=== PATIENT | female | born 1945 | race Caucasian/White ===

== ENCOUNTER → 2017-04-03 | Outpatient (CLI) | payer MEDICARE ==
--- NOTE | 2017-04-03 13:49 | BD ---
EXAMINATION TYPE: MG DEXA axial skeleton. DATE OF EXAM: 04/03/2017 COMPARISON: NONE CLINICAL HISTORY: Postmenopausal female. Height: 62.7 IN Weight: 140 LBS FRAX RISK QUESTIONS: Alcohol (3 or more units per day): NO Family History (Parent hip fracture): NO Glucocorticoids (More than 3mos): NO (Ex: prednisone, prednisolone, methylprednisolone, dexamethasone, and hydrocortisone). History of Fracture in Adulthood: NO Secondary Osteoporosis: 1. Type 1 Diabetes: NO 2. Hyperthyroidism: NO 3. Menopause before 45: AGE 48 4. Malnutrition: NO 5. Chronic liver disease: NO Rheumatoid Arthritis: NO Current Tobacco Use: NO RISK FACTORS HISTORY OF: Family History of Osteoporosis: YES MOTHER Active: YES Postmenopausal woman: AGE 48 Take estrogen and/or progesterone medications: NOT NOW How long: AGE 50 - 50 MEDICATIONS: Additional Medications: CALCIUM, VIT D, CENTRUM SILVER, BIOTIN, B12, RED YEAST RICE, PATI GLUCOSAMINE EXAM MEASUREMENTS: Bone mineral densitometry was performed using the [employer] System. Bone mineral density as measured about the Lumbar spine is: ----- L1-L4(G/cm2): 0.945 T Score Values are as follows: ----- L2: -2.6 ----- L3: -2.0 ----- L4: -0.8 ----- L1-L4: -2.0 Bone mineral density has: Increased 8.3% since study of: 12/24/2008 Bone mineral density about the R hip (g/cm2): 0.828 Bone mineral density about the L hip (g/cm2): 0.748 T Score values are as follows: -----R Neck: -1.5 -----L Neck: -2.1 -----R Total: -1.0 -----L Total: -1.2 Bone mineral density has: Decreased -4.7% since study of: 12/24/2008 IMPRESSION: OSTEOPOROSIS. 10 YEAR FRACTURE RISK: MAJOR OSTEOPOROTIC FRACTURE RISK: 13.4% HIP FRACTURE RISK: 3.3% NOTE: T-SCORE=SD OF THE YOUNG ADULT MEAN.
--- NOTE | 2017-04-04 08:54 | MM ---
Reason for exam: screening (asymptomatic). Last mammogram was performed 1 year ago. History: Patient is postmenopausal. Family history of breast cancer in sister at age 50 and breast cancer in sister at age 55. Benign stereotactic core biopsy of the right breast, September 08, 2003. Took estrogen for 10 years beginning at age 48. Physical Findings: A clinical breast exam by your physician is recommended on an annual basis and results should be correlated with mammographic findings. MG 3D Screening Mammo W/Cad Bilateral CC and MLO view(s) were taken. Prior study comparison: March 29, 2016, bilateral MG 3d screening mammo w/cad. March 25, 2015, bilateral MG screening mammo w CAD. The breast tissue is heterogeneously dense. This may lower the sensitivity of mammography. Stable benign calcifications. There is chronic nodularity in the left breast, stable. No significant changes when compared with prior studies. ASSESSMENT: Benign, BI-RAD 2 RECOMMENDATION: Routine screening mammogram of both breasts in 1 year.
== END | disposition home or self-care (01) ==
LOC: RADBDWWP 10:30
PROVIDERS: ATTEND Obstetrics & Gynecology
DX: Z12.31 Encounter for screening mammogram for malignant neoplasm of breast (principal); Z13.820 Encounter for screening for osteoporosis; M81.0 Age-related osteoporosis without current pathological fracture
CPT/HCPCS: 77080; 77063; G0202

== ENCOUNTER 2019-01-29 11:48 | Emergency (ER) | payer MEDICARE ==
[2019-01-29] MEDS ORDERED: METOCLOPRAMIDE 5 MG/ML 2 ML VIAL IVP STA (12:20)
[2019-01-29] MEDS ORDERED: methylPREDNISolone SOD SUCCI 250 MG in SODIUM CHLORIDE 0.9% 100 ML IVPB STA (12:20)
[2019-01-29] MEDS ORDERED: diphenhydrAMINE 50 MG/ML 1 ML VIAL IVP STA (12:20)
[2019-01-29] MEDS ORDERED: SODIUM CHLORIDE 0.9% 1,000 ML IV STA (12:20)
[2019-01-29] MEDS ORDERED: MORPHINE SULFATE 4 MG/ML SYRINGE IVP STA (12:20)
[2019-01-29] MEDS ORDERED: KETOROLAC 30 MG/ML 1 ML VIAL IVP STA (12:20)
--- NOTE | 2019-01-29 13:09 | ED ---
Headache HPI - General Chief Complaint: Headache Stated Complaint: headache Time Seen by Provider: 01/29/19 12:07 Source: RN notes reviewed, old records reviewed Mode of arrival: ambulatory Limitations: no limitations - History of Present Illness Initial Comments: This is a 73-year-old female the ER for evaluation. Patient coming of post shingles pain. She has pain medication at home which she states this helped but not significantly improving. She did finish a complete dose of antibiotics and states pain is just not gotten any better. Denies any other injuries or trauma. No other pain. No neurological complaints. MD Complaint: headache, other (Neck pain skin pain shoulder pain) -: week(s) Onset Description: gradual Location: left Severity: moderate Severity scale (1-10): 4 Quality: aching, throbbing Consistency: constant Improves With: medication Worsens With: none Associated Symptoms: weakness (Patient does believe she is dehydrated) Treatments Prior to Arrival: prescription analgesic - Related Data Home Medications Medication Instructions Recorded Confirmed Cholecalciferol [Vitamin D3] 5,000 unit PO DAILY 04/01/15 01/29/19 Vitamin B Complex 1,000 cap PO DAILY 04/01/15 01/29/19 Glucosamine-Chondr 500-400Mg 1 tab PO DAILY 04/22/16 01/29/19 Multivitamin/Iron/Folic Acid 1 tab PO DAILY 04/22/16 01/29/19 [Centrum Complete Multivit Tab] L.acidoph,Paracasei, B.lactis 1 cap PO DAILY 01/29/19 01/29/19 [Probiotic] Vitamin C/Biotin [Hair, Skin and 1 tab PO DAILY 01/29/19 01/29/19 Nails] traMADol HCL [Ultram] 50 mg PO Q6HR PRN 01/29/19 01/29/19 Allergies Allergy/AdvReac Type Severity Reaction Status Date / Time Iodinated Contrast- Oral and Allergy Nausea & Verified 01/29/19 12:08 IV Dye Vomiting [Iodinated Contrast Media - IV Dye] steroids Allergy Rash/Hives Uncoded 01/29/19 11:52 Review of Systems ROS Statement: Those systems with pertinent positive or pertinent negative responses have been documented in the HPI. ROS Other: All systems not noted in ROS Statement are negative. Past Medical History Past Medical History: No Reported History History of Any Multi-Drug Resistant Organisms: None Reported Past Surgical History: Tubal Ligation Past Anesthesia/Blood Transfusion Reactions: No Reported Reaction Past Psychological History: No Psychological Hx Reported Smoking Status: Former smoker Past Alcohol Use History: Occasional Past Drug Use History: None Reported - Past Family History Sister(s) Family Medical History: Cancer General Exam - General Exam Comments Initial Comments: Patient does have shingles like rash around left neck left shoulder left anterior chest, resolved Limitations: no limitations General appearance: alert, in no apparent distress Head exam: Present: atraumatic, normocephalic, normal inspection Eye exam: Present: normal appearance, PERRL, EOMI. Absent: scleral icterus, conjunctival injection, periorbital swelling ENT exam: Present: normal exam, mucous membranes moist Neck exam: Present: normal inspection. Absent: tenderness, meningismus, lymphadenopathy Respiratory exam: Present: normal lung sounds bilaterally. Absent: respiratory distress, wheezes, rales, rhonchi, stridor Cardiovascular Exam: Present: regular rate, normal rhythm, normal heart sounds. Absent: systolic murmur, diastolic murmur, rubs, gallop, clicks GI/Abdominal exam: Present: soft, normal bowel sounds. Absent: distended, tenderness, guarding, rebound, rigid Extremities exam: Present: normal inspection, full ROM, normal capillary refill. Absent: tenderness, pedal edema, joint swelling, calf tenderness Back exam: Present: normal inspection Neurological exam: Present: alert, oriented X3, CN II-XII intact Psychiatric exam: Present: normal affect, normal mood Skin exam: Present: warm, dry, intact, normal color. Absent: rash Course Vital Signs 01/29/19 01/29/19 01/29/19 11:50 13:52 14:35 Temperature 98.2 F 98.1 F Pulse Rate 91 87 76 Respiratory 20 18 18 Rate Blood Pressure 156/84 137/79 139/79 O2 Sat by Pulse 99 98 97 Oximetry - Reevaluation(s) Reevaluation #1: Medical record reviewed Headache resolved here in the ER Medical Decision Making - Medical Decision Making 73 female the ER for evaluation. Patient presents today for evaluation regards to headache. Headache from shingles. Headache is improved here in the ER patient can be discharged home - Lab Data Result diagrams: 01/29/19 12:50 01/29/19 12:50 Lab Results 05/21/19 05/21/19 Range/Units 12:50 12:50 WBC 5.8 (3.8-10.6) k/uL RBC 4.50 (3.80-5.40) m/uL Hgb 14.0 (11.4-16.0) gm/dL Hct 42.7 (34.0-46.0) % MCV 95.1 (80.0-100.0) fL MCH 31.1 (25.0-35.0) pg MCHC 32.7 (31.0-37.0) g/dL RDW 14.2 (11.5-15.5) % Plt Count 298 (150-450) k/uL Neutrophils % 65 % Lymphocytes % 25 % Monocytes % 8 % Eosinophils % 1 % Basophils % 0 % Neutrophils # 3.7 (1.3-7.7) k/uL Lymphocytes # 1.5 (1.0-4.8) k/uL Monocytes # 0.5 (0-1.0) k/uL Eosinophils # 0.1 (0-0.7) k/uL Basophils # 0.0 (0-0.2) k/uL Sodium 138 (137-145) mmol/L Potassium 4.1 (3.5-5.1) mmol/L Chloride 103 (98-107) mmol/L Carbon Dioxide 29 (22-30) mmol/L Anion Gap 6 mmol/L BUN 10 (7-17) mg/dL Creatinine 0.62 (0.52-1.04) mg/dL Est GFR (CKD-EPI)AfAm >90 (>60 ml/min/1.73 sqM) Est GFR (CKD-EPI)NonAf 89 (>60 ml/min/1.73 sqM) Glucose 95 (74-99) mg/dL Calcium 10.0 (8.4-10.2) mg/dL Phosphorus 3.3 (2.5-4.5) mg/dL Magnesium 1.9 (1.6-2.3) mg/dL Total Bilirubin 0.8 (0.2-1.3) mg/dL AST 32 (14-36) U/L ALT 17 (9-52) U/L Alkaline Phosphatase 78 (38-126) U/L Total Protein 7.2 (6.3-8.2) g/dL Albumin 4.2 (3.5-5.0) g/dL Disposition Clinical Impression: Headache Disposition: HOME SELF-CARE Condition: Good Instructions (If sedation given, give patient instructions): Acute Headache (ED) Is patient prescribed a controlled substance at d/c from ED?: No Referrals: Pretty Jules MD [Primary Care Provider] - 1-2 days
[2019-01-29 13:54] LABS: Basophils % (A) 0 %; Eosinophils # (A) 0.1 k/uL (0-0.7); Eosinophils % (A) 1 %; HCT 42.7 % (34.0-46.0); Lymphocytes # (A) 1.5 k/uL (1.0-4.8); Lymphocytes % (A) 25 %; MCH 31.1 pg (25.0-35.0); MCHC 32.7 g/dL (31.0-37.0); MCV 95.1 fL (80.0-100.0); Monocytes # (A) 0.5 k/uL (0-1.0); Monocytes % (A) 8 %; Neutrophils # (A) 3.7 k/uL (1.3-7.7); Neutrophils % (A) 65 %; Platelet Count 298 k/uL (150-450); RDW 14.2 % (11.5-15.5); WBC 5.8 k/uL (3.8-10.6)
[2019-01-29 14:03] VITALS: RESP 18
[2019-01-29 14:12] LABS: ALT 17 U/L (9-52); AST 32 U/L (14-36); Albumin 4.2 g/dL (3.5-5.0); Alkaline Phosphatase 78 U/L (38-126); Anion Gap 6 mmol/L; Blood Urea Nitrogen 10 mg/dL (7-17); Carbon Dioxide 29 mmol/L (22-30); Chloride 103 mmol/L (98-107); Glucose 95 mg/dL (74-99); Magnesium 1.9 mg/dL (1.6-2.3); Phosphorus 3.3 mg/dL (2.5-4.5); Potassium 4.1 mmol/L (3.5-5.1); Sodium 138 mmol/L (137-145); Total Bilirubin 0.8 mg/dL (0.2-1.3); Total Protein 7.2 g/dL (6.3-8.2)
[2019-01-29 14:50] VITALS: BP 139/79; PULSE 76; TEMP 98.1
== END 2019-01-29 15:19 | disposition home or self-care (01) ==
LOC: EC 11:48
DX: R51 Headache (principal); M54.2 Cervicalgia; M25.519 Pain in unspecified shoulder; R53.1 Weakness; B02.9 Zoster without complications; Z91.041 Radiographic dye allergy status; Z88.8 Allergy status to other drugs, medicaments and biological substances; Z87.891 Personal history of nicotine dependence
CPT/HCPCS: 36415; 80053; 83735; 84100; 85025; 99284; 96365; 96375 ×4; J2270; J1200; J2765; J2930; J1885

== ENCOUNTER 2019-02-04 04:27 | Emergency (ER) | payer MEDICARE ==
[2019-02-04 04:35] VITALS: BP 167/104; PULSE 100; RESP 20; TEMP 97.8
--- NOTE | 2019-02-04 05:39 | ED ---
General Adult HPI - General Chief complaint: Neck Pain/Injury Stated complaint: Neck Pain/ Shingles Time Seen by Provider: 02/04/19 05:28 Source: patient Mode of arrival: ambulatory Limitations: no limitations - History of Present Illness Initial comments: Digna is a 73-year-old female who presents to the emergency department today for pain management. Patient recently had a bout of shingles on her left side of her neck. Patient reports she's had significant pain with this. She was seen and evaluated in the hospital earlier in the week and was given IM pain medications which she reports made her feel better for almost 24 hours. Patient followed up with the urgent care yesterday and was prescribed oral Toradol and Tylenol. Patient reports she's been taking these with no relief. Patient was seen and evaluated by her primary care physician and initially for shingles and was diagnosed with shingles and prescribed antivirals which she completed yesterday. Despite being compliant with all of these medication regimen she continues to have unbearable pain. Patient describes it as feeling as though her skin is just ripped off for she's been burned. Patient is curled up in a ball crying. - Related Data Home Medications Medication Instructions Recorded Confirmed Cholecalciferol [Vitamin D3] 5,000 unit PO DAILY 04/01/15 01/29/19 Vitamin B Complex 1,000 cap PO DAILY 04/01/15 01/29/19 Glucosamine-Chondr 500-400Mg 1 tab PO DAILY 04/22/16 01/29/19 Multivitamin/Iron/Folic Acid 1 tab PO DAILY 04/22/16 01/29/19 [Centrum Complete Multivit Tab] L.acidoph,Paracasei, B.lactis 1 cap PO DAILY 01/29/19 01/29/19 [Probiotic] Vitamin C/Biotin [Hair, Skin and 1 tab PO DAILY 01/29/19 01/29/19 Nails] traMADol HCL [Ultram] 50 mg PO Q6HR PRN 01/29/19 01/29/19 Previous Rx's Medication Instructions Recorded Acetaminophen with Codeine 1 tab PO Q4H PRN 3 Days #18 tab 02/04/19 [Tylenol w/codeine #3] Gabapentin [Neurontin] 600 mg PO TID #45 tab 02/04/19 Ondansetron [Zofran ODT] 4 mg PO Q8HR #12 tab 02/04/19 Allergies Allergy/AdvReac Type Severity Reaction Status Date / Time Iodinated Contrast- Oral and Allergy Nausea & Verified 02/04/19 04:34 IV Dye Vomiting [Iodinated Contrast Media - IV Dye] steroids Allergy Rash/Hives Uncoded 02/04/19 04:34 Review of Systems ROS Statement: Those systems with pertinent positive or pertinent negative responses have been documented in the HPI. ROS Other: All systems not noted in ROS Statement are negative. Past Medical History Past Medical History: No Reported History Additional Past Medical History / Comment(s): hx of shingles History of Any Multi-Drug Resistant Organisms: None Reported Past Surgical History: Tubal Ligation Past Anesthesia/Blood Transfusion Reactions: No Reported Reaction Past Psychological History: No Psychological Hx Reported Smoking Status: Former smoker Past Alcohol Use History: Occasional Past Drug Use History: None Reported - Past Family History Sister(s) Family Medical History: Cancer General Exam - General Exam Comments Initial Comments: Physical Exam GENERAL: Patient is well-developed and well-nourished. Patient in acute distress due to pain HENT: Normocephalic, Atraumatic. EYES: PERRL, EOMI PULMONARY: Unlabored respirations. No audible rales rhonchi or wheezing was noted. CARDIOVASCULAR: There is a regular rate and rhythm without any murmurs gallops or rubs. ABDOMEN: Soft and nontender with normal bowel sounds. SKIN: Healing rash on left side of neck, crusted vesicles consistent with shingles : Deferred NEUROLOGIC: Patient is alert and oriented x3. Moving all extremities spontaneously MUSCULOSKELETAL: Normal extremities with adequate strength and full range of motion. No lower extremity swelling or edema. No calf tenderness. PSYCHIATRIC: Appropriate Limitations: no limitations Course Vital Signs 02/04/19 04:31 Temperature 97.8 F Pulse Rate 100 Respiratory 20 Rate Blood Pressure 167/104 O2 Sat by Pulse 99 Oximetry Medical Decision Making - Medical Decision Making Patient was seen and evaluated history was obtained from the patient and at bedside next and 73-year-old female who recently completed a course of antivirals for shingles is here for uncontrollable pain secondary to shingles. Patient is only been given Toradol and Tylenol Patient with healing rash with no active lesions. Patient likely suffering from postherpetic neuralgia. Will be given IM Dilaudid here and by mouth Tylenol 3 as well as gabapentin. Patient with follow-up with her primary care physician this week for recheck. Disposition Clinical Impression: Post herpetic neuralgia Disposition: HOME SELF-CARE Condition: Stable Instructions (If sedation given, give patient instructions): Shingles (ED) Prescriptions: Gabapentin [Neurontin] 600 mg PO TID #45 tab Acetaminophen with Codeine [Tylenol w/codeine #3] 1 tab PO Q4H PRN 3 Days #18 tab PRN Reason: Pain Ondansetron [Zofran ODT] 4 mg PO Q8HR #12 tab Is patient prescribed a controlled substance at d/c from ED?: Yes When asked, does pt state using other controlled substances?: No If prescribed controlled substance>3 days was MAPS reviewed?: Prescribed <3 Days If opioid is for acute pain is fill amount 7 days or less?: Yes Referrals: Pretty Jules MD [Primary Care Provider] - 1-2 days
[2019-02-04] MEDS ORDERED: HYDROmorphone 1 MG/ML 1 ML SYRINGE IM STA (05:50)
[2019-02-04] MEDS ORDERED: ACET/COD 300 MG/30 MG STARTER PACK 6 TAB BTL PO STA (05:51)
== END 2019-02-04 06:39 | disposition home or self-care (01) ==
LOC: EC 04:27
DX: B02.29 Other postherpetic nervous system involvement (principal); Z87.891 Personal history of nicotine dependence; Z79.899 Other long term (current) drug therapy; Z91.041 Radiographic dye allergy status; Z88.8 Allergy status to other drugs, medicaments and biological substances
CPT/HCPCS: 99283; 96372; J1170

== ENCOUNTER → 2019-04-03 | Outpatient (CLI) | payer MEDICARE ==
--- NOTE | 2019-04-03 11:04 | XR ---
EXAMINATION TYPE: XR abdomen 2V DATE OF EXAM: 04/03/2019 CLINICAL HISTORY: Diarrhea for 3 months with weight loss TECHNIQUE: Supine and upright views of the abdomen are obtained. COMPARISON: None. FINDINGS: Scattered gas is seen in non-distended small bowel loops. Gas filled small bowel loop oper ative bed central abdomen is slightly prominent . Gas and fecal material is seen in non-distended col on. There is no visceromegaly, pneumoperitoneum, or abnormal calcification appreciated. There is le ft pelvic phlebolith and bilateral pelvic vascular calcification. The lung bases are clear and the os seous structures are intact. IMPRESSION: Overall nonspecific but strongly favor nonobstructive bowel gas pattern.
== END | disposition home or self-care (01) ==
LOC: RADXRMAIN 10:28
PROVIDERS: ATTEND Family Medicine
DX: R14.3 Flatulence (principal)
CPT/HCPCS: 74019

== ENCOUNTER → 2020-07-10 | Outpatient (CLI) | payer MEDICARE ==
--- NOTE | 2020-07-10 13:10 | XR ---
EXAMINATION TYPE: XR abdomen complete w decub DATE OF EXAM: 07/10/2020 CLINICAL HISTORY: Intestinal discomfort one year. History of bladder prolapse. TECHNIQUE: Supine, upright, and left side down lateral decubitus views of the abdomen are obtained. COMPARISON: Abdominal x-ray April 03, 2019. FINDINGS: Some paucity of bowel gas. Scattered gas seen in nondistended small and large bowel loops. There is no suspicious visceromegaly or pneumoperitoneum. Patchy left basilar linear scarring. Slight scoliotic curvature remains present. Vascular calcification in the pelvis again seen. IMPRESSION: Overall nonspecific but strongly favor nonobstructive bowel gas pattern. No significant change from prior.
== END | disposition home or self-care (01) ==
LOC: RADXRMAIN 11:17
PROVIDERS: ATTEND Family Medicine
DX: K59.00 Constipation, unspecified (principal)
CPT/HCPCS: 74021

== ENCOUNTER → 2020-07-23 | Outpatient (CLI) | payer MEDICARE | END | disposition home or self-care (01) | LOC: LABWHC1 15:06 | PROVIDERS: ATTEND Family Medicine | DX: R51.9 Headache, unspecified (principal); R11.0 Nausea | CPT/HCPCS: U0003; C9803 ==

== ENCOUNTER → 2021-04-19 | Outpatient (CLI) | payer MEDICARE ==
--- NOTE | 2021-04-19 12:23 | XR ---
EXAMINATION TYPE: XR lumbosacral spine min 4V DATE OF EXAM: 04/19/2021 COMPARISON: 04/22/2016 HISTORY: Pain TECHNIQUE: 5V lumbar spine FINDINGS: There is attempted sacralization of L5 on the left. There are 5 lumbar-type vertebral celina s. Pedicles are intact. Minimal grade 1 spondylolisthesis of L4 anteriorly on L5 may be present. Vert ebral body heights are preserved. Some disc space narrowing L1-2 and L4-5 may be present. Posterior d isc space narrowing at L2-3 L3-4 may be present. IMPRESSION: 1. Diffuse degenerative disc changes. 2. Suggestion of a minimal grade 1 spondylolisthesis of L4 anteriorly on L5. 3. Attempted sacralization of L5 on the left.
--- NOTE | 2021-04-19 12:24 | XR ---
EXAMINATION TYPE: XR Hip Complete LT DATE OF EXAM: 04/19/2021 COMPARISON: None HISTORY: Pain TECHNIQUE: 2 view left hip FINDINGS: Femoral head articulates with the acetabulum. Joint space appears preserved. No acute fract ure or dislocation is evident. IMPRESSION: 1. Normal 2 view left hip
== END | disposition home or self-care (01) ==
LOC: RADXRMAIN 11:35
PROVIDERS: ATTEND Family Medicine
DX: M51.36 Other intervertebral disc degeneration, lumbar region (principal); R60.0 Localized edema; M79.605 Pain in left leg
CPT/HCPCS: 72110; 73502

== ENCOUNTER → 2021-04-19 | Outpatient (CLI) | payer MEDICARE ==
--- NOTE | 2021-04-19 16:22 | US ---
EXAMINATION TYPE: US venous doppler duplex LE DATE OF EXAM: 04/19/2021 12:38 PM COMPARISON: NONE CLINICAL HISTORY: M79.605 pain in left leg, R60.0 localize edema. SIDE PERFORMED: Bilateral TECHNIQUE: The lower extremity deep venous system is examined utilizing real time linear array sonog yana with graded compression, doppler sonography and color-flow sonography. VESSELS IMAGED: Common Femoral Vein Deep Femoral Vein Greater Saphenous Vein * Femoral Vein Popliteal Vein Small Saphenous Vein * Proximal Calf Veins (* superficial vessels) Right Leg: Appears negative for DVT Left Leg: Appears negative for DVT IMPRESSION: 1. Bilateral lower extremity ultrasound negative for deep venous thrombosis.
--- NOTE | 2021-04-21 12:02 | P.ARTDOP ---
Arterial Doppler LOWER EXTREMITY ARTERIAL DOPPLER: DATE OF SERVICE: 04/19/2021 Reason for study: Left leg pain. Doppler waveforms: Multiphasic bilaterally throughout with excellent digital waveforms. Pulse volume recording: []. Pressure gradients: None. Ankle-brachial indices: Greater than 1 bilaterally. Toe brachial indices: 0.78 on the right, 0.76 on the left Impression: Normal study.
== END | disposition home or self-care (01) ==
LOC: RADUSWWP 09:51
PROVIDERS: ATTEND Family Medicine
DX: M79.605 Pain in left leg (principal); R60.0 Localized edema; M54.5 Low back pain
CPT/HCPCS: 93922; 93970

== ENCOUNTER 2025-03-18 15:04 | Emergency (ER) | payer MEDICARE ==
--- NOTE | 2025-03-18 15:44 | ED ---
Fall HPI - General Chief Complaint: Fall Stated Complaint: Fall, shoulder injury Time Seen by Provider: 03/18/25 15:40 Source: patient, EMS, RN notes reviewed, old records reviewed Mode of arrival: EMS Limitations: no limitations - History of Present Illness Initial Comments: This is a 79-year-old female after trip and fall. 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 Fall Witnessed: yes, by family Place Fall Occurred: home Loss of Consciousness: none Prolonged Down Time?: no Symptoms Prior to Fall: none Location - Extremities: Right: Shoulder, Arm Severity: severe Severity scale (1-10): 10 Quality: sharp Context: tripped/slipped Associated Symptoms: denies - Related Data Home Medications Medication Instructions Recorded Confirmed Cholecalciferol [Vitamin D3] 5,000 unit PO DAILY 04/01/15 01/29/19 Vitamin B Complex 1,000 cap PO DAILY 04/01/15 01/29/19 Glucosamine-Chondr 500-400Mg 1 tab PO DAILY 04/22/16 01/29/19 Multivitamin/Iron/Folic Acid 1 tab PO DAILY 04/22/16 01/29/19 [Centrum Complete Multivit Tab] L.acidoph,Paracasei, B.lactis 1 cap PO DAILY 01/29/19 01/29/19 [Probiotic] Vitamin C/Biotin [Hair, Skin and 1 tab PO DAILY 01/29/19 01/29/19 Nails] traMADol HCL [Ultram] 50 mg PO Q6HR PRN 01/29/19 01/29/19 Previous Rx's Medication Instructions Recorded Acetaminophen with Codeine 1 tab PO Q4H PRN 3 Days #18 tab 02/04/19 [Tylenol w/codeine #3] Gabapentin [Neurontin] 600 mg PO TID #45 tab 02/04/19 Ondansetron [Zofran ODT] 4 mg PO Q8HR #12 tab 02/04/19 Allergies Allergy/AdvReac Type Severity Reaction Status Date / Time Iodinated Contrast Media Allergy Nausea & Verified 03/18/25 15:13 [Iodinated Contrast Media - Vomiting IV Dye] steroids Allergy Rash/Hives Uncoded 03/18/25 15:13 Review of Systems ROS Statement: Those systems with pertinent positive or pertinent negative responses have been documented in the HPI. ROS Other: All systems not noted in ROS Statement are negative. Past Medical History Past Medical History: No Reported History Additional Past Medical History / Comment(s): hx of shingles History of Any Multi-Drug Resistant Organisms: None Reported Past Surgical History: Tubal Ligation Past Anesthesia/Blood Transfusion Reactions: No Reported Reaction Past Psychological History: No Psychological Hx Reported Past Alcohol Use History: Occasional Past Drug Use History: None Reported - Past Family History Sister(s) Family Medical History: Cancer General Exam Limitations: no limitations General appearance: alert, in no apparent distress Head exam: Present: atraumatic, normocephalic, normal inspection Eye exam: Present: normal appearance, PERRL, EOMI. Absent: scleral icterus, conjunctival injection, periorbital swelling ENT exam: Present: normal exam, mucous membranes moist Neck exam: Present: normal inspection. Absent: tenderness, meningismus, lymphadenopathy Respiratory exam: Present: normal lung sounds bilaterally. Absent: respiratory distress, wheezes, rales, rhonchi, stridor Cardiovascular Exam: Present: regular rate, normal rhythm, normal heart sounds. Absent: systolic murmur, diastolic murmur, rubs, gallop, clicks GI/Abdominal exam: Present: soft, normal bowel sounds. Absent: distended, tenderness, guarding, rebound, rigid Extremities exam: Present: normal inspection, full ROM, normal capillary refill. Absent: tenderness, pedal edema, joint swelling, calf tenderness Back exam: Present: normal inspection Neurological exam: Present: alert, oriented X3, CN II-XII intact Psychiatric exam: Present: normal affect, normal mood Skin exam: Present: warm, dry, intact, normal color. Absent: rash Course Vital Signs 03/18/25 03/18/25 03/18/25 15:08 19:02 19:05 Temperature 97.8 F Pulse Rate 70 72 82 Respiratory 18 18 16 Rate Blood Pressure 146/84 149/75 113/103 O2 Sat by Pulse 97 100 97 Oximetry 03/18/25 03/18/25 03/18/25 19:10 19:15 19:20 Temperature Pulse Rate 72 73 68 Respiratory 20 26 H 23 Rate Blood Pressure 163/81 155/73 152/84 O2 Sat by Pulse 97 99 99 Oximetry 03/18/25 20:23 Temperature 98.4 F Pulse Rate 86 Respiratory 16 Rate Blood Pressure 161/91 O2 Sat by Pulse 99 Oximetry - Reevaluation(s) Reevaluation #1: 03/18/25 16:45 Medical records reviewed Reevaluation #2: Symptoms improved here in the ER Reevaluation #3: Patient informed of results questions answered Reevaluation #4: Was pt. sent in by a medical professional or institution (CHANTAL Torres, M[employer] SALESPERSON, urgent care, hospital, or care home...) When possible be specific @ -no Did you speak to anyone other than the patient for history (EMS, parent, family, police, friend...)? What history was obtained from this source @ -no Did you review nursing and triage notes (agree or disagree)? Why? @ -agree Are old charts reviewed (outside hosp., previous admission, EMS record, old EKG, old radiological studies, urgent care reports/EKG's, care home records)? Report findings @ -yes Differential Diagnosis (chest pain, altered mental status, abdominal pain women, abdominal pain men, vaginal bleeding, weakness, fever, dyspnea, syncope, headache, dizziness, GI bleed, back pain, seizure, CVA, palpatations, mental health, musculoskeletal)? @ -prior EKG interpreted by me (3pts min.). @ -no X-rays interpreted by me (1pt min.). @ -yes positive right shoulder dislocation e CT interpreted by me (1pt min.). @ -no U/S interpreted by me (1pt. min.). @ -no What testing was considered but not performed or refused? (CT, X-rays, U/S, labs)? Why? @ -none What meds were considered but not given or refused? Why? @ -none Did you discuss the management of the patient with other professionals (professionals i.e. CHANTAL Torres, [employer] SALESPERSON, lab, RT, psych nurse, social security benefits interviewer, probate lawyer, teacher, contracting officer, disease case manager rn)? Give summary @ -no Was smoking cessation discussed for >3mins.? @ -no Was critical care preformed (if so, how long)? @ -no Were there social determinants of health that impacted care today? How? (Homelessness, low income, unemployed, alcoholism, drug addiction, transportation, low edu. Level, literacy, decrease access to med. care, half-way, rehab)? @ -none Was there de-escalation of care discussed even if they declined (Discuss DNR or withdrawal of care, Hospice)? DNR status @ -no What co-morbidities impacted this encounter? (DM, HTN, Smoking, COPD, CAD, Cancer, CVA, ARF, Chemo, Hep., AIDS, mental health diagnosis, sleep apnea, morbid obesity)? @ -none Was patient admitted / discharged? Hospital course, mention meds given and route, prescriptions, significant lab abnormalities, going to [place] and other [facility] info. @ - 79 female fall with shoulder dislocation, relocated here in the under conscious sedation patient can be discharged home Discharge Undiagnosed new problem with uncertain prognosis? @ -no Drug Therapy requiring intensive monitoring for toxicity (Heparin, Nitro, Insulin, Cardizem)? @ -no Were any procedures done? @ -no Diagnosis/symptom? @ -Fall shoulder dislocation Acute, or Chronic, or Acute on Chronic? @ -Acute Uncomplicated (without systemic symptoms) or Complicated (systemic symptoms)? @ -Complicated Side effects of treatment? @ -no Exacerbation, Progression, or Severe Exacerbation? @ -exacerbation Poses a threat to life or bodily function? How? (Chest pain, USA, AR, pneumonia, PE, COPD, DKA, ARF, appy, cholecystitis, CVA, Diverticulitis, Homicidal, Suicidal, threat to staff... and all critical care pts) @ -no Procedures - Orthopedic Joint Reduction Joint #1 Consent Obtained: verbal consent Side: right Joint Reduction Location: shoulder Analgesia: procedural sedation Shoulder Technique Used (if applicable): traction/counter-traction, scapula manipulation, external rotation, Milch, Shankar, [place] Post-Reduction Neuro Exam: intact Post-Reduction Vascular Exam: intact Post Reduction X-Ray Obtained: Yes Post Reduction X-Ray Results: reduced Splint Applied: Yes Patient Tolerated Procedure: well - Procedural Sedation *Procedural Sedation Start Time: 17:00 *Procedural Sedation Stop Time: 17:35 *Risks,benefits, and alternative therapies discussed?: Yes *Patient indicates understanding of risk/benefit discussion?: Yes *Indications: fracture/dislocation reduction *Previous Adverse Reaction to Anesthesia/Sedation?: No * Testing Complete?: No Reason Test Not Complete:: Emergent Situation *ASA Class: III *Mallampati Airway Score: 3 Preparation: desk monitor applied, pulse oximeter, capnometry used IV Propofol Dose (mgs): 200 Complications: none Interventions: oxygen applied Patient Tolerated Procedure: well Medical Decision Making - Medical Decision Making 79 female fall with shoulder dislocation, relocated here in the under conscious sedation patient can be discharged home - Radiology Data Radiology results: report reviewed (X-ray shoulder positive dislocation), image reviewed Disposition Clinical Impression: Fall, Dislocation of right shoulder joint Disposition: HOME SELF-CARE Condition: Good Instructions (If sedation given, give patient instructions): Shoulder Dislocation (ED), Fall Prevention for Older Adults (ED), Moderate Sedation (ED) Is patient prescribed a controlled substance at d/c from ED?: No Referrals: Pretty Jules MD [Primary Care Provider] - 1-2 days Colt Naidu DO [Doctor of Osteopathic Medicine] - 1-2 days Time of Disposition: 20:00
[2025-03-18] MEDS: MORPHINE SULFATE 4 MG/ML SYRINGE IM STA (16:07)
[2025-03-18] MEDS: MORPHINE SULFATE 4 MG/ML SYRINGE IVP STA ×2 (16:07→20:17)
[2025-03-18] MEDS: ONDANSETRON 4 MG/2 ML VIAL IVP STA (16:23)
--- NOTE | 2025-03-18 17:15 | XR ---
EXAMINATION TYPE: XR chest 1V DATE OF EXAM: 03/18/2025 5:09 PM COMPARISON: Right shoulder radiograph of the same day. TECHNIQUE: XR chest 1V Frontal view of the chest. CLINICAL INDICATION:Female, 79 years old with history of fall; pain FINDINGS: Lungs/Pleura: There is no evidence of pleural effusion, focal consolidation, or pneumothorax. Pulmonary vascularity: Unremarkable. Heart/mediastinum: Cardiomediastinal silhouette is unremarkable. Musculoskeletal: Dislocated right shoulder which is described on concurrent shoulder radiograph. IMPRESSION: No acute cardiopulmonary disease/process. [facility], , 03/18/2025 5:13 PM
--- NOTE | 2025-03-18 17:17 | XR ---
EXAMINATION TYPE: XR shoulder complete RT, XR humerus RT DATE OF EXAM: 03/18/2025 5:09 PM INDICATION: Patient age:Female; 79 years old; Reason for study: pain; pain COMPARISON: Chest radiograph the same date TECHNIQUE: The right shoulder was examined in AP, internally rotated and scapular Y projections. AP and lateral views of the right humerus are obtained. FINDINGS: Anterior dislocation of the right humeral head in relation to the glenoid fossa. No acute fracture. N o significant soft tissue swelling. The remaining portions of the visualized chest are unremarkable. IMPRESSION: Acute anterior right shoulder dislocation. No acute fracture. [facility], , 03/18/2025 5:15 PM
[2025-03-18] MEDS: PROPOFOL 10 MG/ML 20 ML VIAL IV ONE (19:03)
[2025-03-18] MEDS: SODIUM CHLORIDE 0.9% 1,000 ML IV ONE (19:04)
--- NOTE | 2025-03-18 20:04 | XR ---
EXAMINATION TYPE: XR shoulder limited RT DATE OF EXAM: 03/18/2025 7:54 PM COMPARISON: 03/18/2025 earlier exam CLINICAL INDICATION: Female, 79 years old with history of post reduction, pain TECHNIQUE: AP view(s) obtained. FINDINGS: Single frontal projection of the right shoulder as the humeral head articulating with the glenoid. Th e joint space appears preserved. Acromiohumeral joint space is preserved. The medial clavicular joint appears normal. Follow-up can be performed as clinically indicated. IMPRESSION: 1. Reduction of previous right shoulder dislocation. [facility], , 03/18/2025 8:02 PM
[2025-03-18] MEDS: KETOROLAC 15 MG/ML 1 ML VIAL IVP STA (20:17)
[2025-03-18 20:25] VITALS: BP 161/91; PULSE 86; RESP 16; TEMP 98.4
== END 2025-03-18 20:25 | disposition home or self-care (01) ==
LOC: EC 15:04
DX: S43.014A Anterior dislocation of right humerus, initial encounter (principal); Z91.041 Radiographic dye allergy status; Z88.8 Allergy status to other drugs, medicaments and biological substances; W01.0XXA Fall on same level from slipping, tripping and stumbling without subsequent striking against object, initial encounter; Y92.009 Unspecified place in unspecified non-institutional (private) residence as the place of occurrence of the external cause
CPT/HCPCS: 73020; 73030; 73060; 71045; 99283; 96374; 96375; 96376; 96361; 99152; 99153; 23650; J2270; J1885; J2704